=== PATIENT | female | born 1960 | race Caucasian/White ===

== ENCOUNTER 2017-09-01 13:58 | Observation (INO) | payer OTHER, SELFPAY ==
--- NOTE | 2017-09-01 14:23 | CT ---
CT HEAD WITHOUT IV CONTRAST: Date: 09-01-17 History: Left sided facial droop and weakness. Comparison: 03-25-17 FINDINGS: There is a remote lacunar infarction again seen in the right basal ganglia. There is no evidence of an acute cortical infarction, hemorrhage, mass effect, or midline shift. Ventricular system is emeka l in size, shape, and position. There has been no interval change from prior exam. IMPRESSION: 1. No acute intracranial abnormalities demonstrated. 2. Remote lacunar infarction right basal ganglia. 3. Above findings discussed with DELANO Dorado in the Emergency Department, 09-01-17 at 1419 hours. POS: [facility]
[2017-09-01 14:37] LABS: #Basophils 0.1 thou/uL (0.0-0.2); #Eosinphils 0.3 thou/uL (0.0-0.7); #Lymphocytes 1.7 thou/uL (1.20-3.40); #Monocytes 0.5 thou/uL (0.11-0.59); #Neutrophils 3.7 thou/uL (1.40-6.50); %Basophils 0.9 % (0.0-1.0); %Eosinophils 4.5 % (0.0-10.0); %Lymphocytes 27.8 % (21.0-51.0); %Monocytes 8.5 % (0.0-10.0); Hematocrit 41.5 % (36.0-47.0); Mean Platelet Volume 10.3 fL (7.4-10.4); White Blood Cell (WBC) Count 6.3 thou/uL (4.8-10.8)
[2017-09-01] MEDS ORDERED: Diazepam 10 MG/2 ML SYRINGE ONE (14:41)
[2017-09-01 14:47] LABS: ALT (SGPT) 9 U/L (8-55); AST (SGOT) 12 U/L (5-34); Alkaline Phosphatase 94 U/L (40-150); Anion Gap 16 mmol/L (10-20); BUN (Urea Nitrogen) 20 mg/dL (9.8-20.1); Bilirubin, Total 0.5 mg/dL (0.2-1.2); Calc. Creatinine Clearance 0 mL/min (70-130); Calcium 9.3 mg/dL (7.8-10.44); Carbon Dioxide 14 mmol/L (22-29); Chloride 109 mmol/L (98-107); Estimated GFR-MDRD 48; Globulin 3.1 g/dL (2.4-3.5); Protein, Total 7.1 g/dL (6.0-8.3)
[2017-09-01 14:51] LABS: Troponin I Less than 0.010 ng/mL (< 0.028)
[2017-09-01 15:13] LABS: Prothrombin Time 12.4 SEC (12.0-14.7)
[2017-09-01 15:14] LABS: PTT 65.8 SEC (22.9-36.1)
[2017-09-01] MEDS ORDERED: Acetaminophen 500 MG TAB ONE (15:56)
--- NOTE | 2017-09-01 16:17 | CT ---
CT ANGIOGRAM OF THE [place] CT ANGIOGRAM OF THE NECK: CT PERFUSION: Date: 09/01/17 HISTORY: Stroke activation. History of CVA. Left facial droop. Symptoms are now better with generalized weakn ess. COMPARISON: None. TECHNIQUE: CT angiogram of the head and neck are performed in the axial plane. Sagittal and coronal three-dimen sional reformatted images are submitted for interpretation. FINDINGS: Cortical clarke-white matter differentiation appears to be preserved. Adequate aeration of the sinuses and mastoid air cells. Bilateral ocular lens implants are noted. Both globes are intact. Retrobulbar fat is preserved. Symm etric attenuation of the optic nerves and ocular rectus muscles. Symmetric attenuation of the parotid and submandibular glands. Thyroid gland is unremarkable. Symmetric attenuation of the sternocleidomastoid muscles. No evidence of lymphadenopathy by size criteria. Narrowing of the airway at the level of the false a nd true vocal cords is presumed to be due to patient formation. If there is concern for pathology, n onemergent direct visualization is recommended. Upper mediastinum is unremarkable. Ground-glass opacities in the lung apices are nonspecific. Cervical spine vertebral body height is maintained. There is no fracture. There are varying degrees of central canal stenosis and foraminal narrowing on the basis of degenerative change. CT ANGIOGRAM: There is appropriate enhancement and luminal diameter of the aortic arch. Right Carotid: Right carotid artery origin has appropriate enhancement and luminal diameter. The innominate artery, common carotid artery, carotid bifurcation, and internal carotid artery have appropriate enhancemen t and luminal diameter. Left Carotid: Left carotid artery origin has appropriate enhancement and luminal diameter. Left common carotid art raymundo, carotid bifurcation, and internal carotid artery have appropriate enhancement and luminal diame ter. Bilateral subclavian arteries are patent. Origin of both vertebral arteries are unremarkable. Both cervical vertebral arteries are patent thro ughout their course in the neck. Vertebral arteries are essentially codominant. CT ANGIOGRAM OF HEAD: There is symmetric enhancement and luminal diameter of distal cervical and intracranial internal car otid arteries. There is mild atherosclerotic disease in both cavernous segments. Anterior Circulation: There is symmetric enhancement and luminal diameter of the A1 and M1 segments. There is symmetric en hancement and luminal diameter of the A2 segments and proximal MCA branches. Posterior Circulation: Left and right PICA artery origins are unremarkable. Both vertebral arteries supply a normal caliber basilar artery. There is appropriate enhancement and luminal diameter. The left and right P1 segmen ts have symmetric enhancement and luminal diameter. CT PERFUSION: Suboptimal examination due to patient motion. The CT perfusion study is essentially nondiagnostic. IMPRESSION: 1. No significant stenosis in either carotid artery based upon NASCET criteria. 2. No significant stenosis at the level of the [place]. 3. Nondiagnostic CT perfusion scan due to patient motion. Results of study discussed with Dr. Chavez on 09/01/17 at 1537 hours. CODE CR. POS: [facility]
[2017-09-01] MEDS ORDERED: ISOVUE-370 76%-LOCM 1 ML ONE (16:25)
[2017-09-01 22:18] LABS: Bilirubin Negative (Negative); Blood, Urine Negative (Negative); Glucose, Urine (Dipstick) Negative (Negative); Ketone, Urine Negative (Negative); Nitrite Negative (Negative); Protein, Urine (Dipstick) Negative (Neg-Trace); Urobilinogen 0.2 mg/dL (0.2-1.0)
[2017-09-01] MEDS ORDERED: Ondansetron HCl/PF 4 MG/2 ML Vial IVP PRN (22:25)
[2017-09-01] MEDS ORDERED: Ondansetron ODT 4 MG TAB SL PRN (22:25)
[2017-09-01] MEDS ORDERED: Sodium Chloride 0.9% 1,000 ML IV SCH (22:30)
[2017-09-01 23:15] VITALS: BMI 28.5
[2017-09-02] MEDS ORDERED: Dextrose 50% Abboject 50 ML SYRINGE SLOW IVP PRN (01:16)
[2017-09-02] MEDS ORDERED: hydrALAZINE 20 MG/ML VIAL SLOW IVP PRN (01:16)
[2017-09-02] MEDS ORDERED: HumaLOG 300 UNITS/3 ML VIAL SC PRN (01:16)
[2017-09-02] MEDS ORDERED: Dextrose 5% in Water 1,000 ML IV PRN (01:16)
[2017-09-02] MEDS: Acetaminophen 325 MG TAB PO PRN ×2 (01:20→12:08)
[2017-09-02] MEDS: Sodium Chloride 0.9% 1,000 ML IV SCH ×2 (02:57→18:15)
[2017-09-02 05:13] LABS: Amphetamine Not Detected (NotDetected); Methamphetamine Not Detected (NotDetected)
[2017-09-02 05:14] LABS: Methadone Not Detected (NotDetected)
[2017-09-02 06:00] LABS: #Basophils 0.1 thou/uL (0.0-0.2); #Eosinphils 0.3 thou/uL (0.0-0.7); #Monocytes 0.5 thou/uL (0.11-0.59); #Neutrophils 2.9 thou/uL (1.40-6.50); %Basophils 0.9 % (0.0-1.0); %Eosinophils 4.5 % (0.0-10.0); %Lymphocytes 35.3 % (21.0-51.0); %Monocytes 8.9 % (0.0-10.0); Mean Platelet Volume 10.6 fL (7.4-10.4); Red Blood Cell (RBC) Count 4.15 mill/uL (4.20-5.40); White Blood Cell (WBC) Count 5.8 thou/uL (4.8-10.8)
[2017-09-02 06:28] LABS: Anion Gap 15 mmol/L (10-20); BUN (Urea Nitrogen) 17 mg/dL (9.8-20.1); Calc. Creatinine Clearance 77 mL/min (70-130); Calcium 9.1 mg/dL (7.8-10.44); Carbon Dioxide 15 mmol/L (22-29); Chloride 109 mmol/L (98-107); Cholesterol 136 mg/dl (< 200 Desired); Estimated GFR-MDRD 58; LDL Cholesterol, Calculated 62 mg/dL
--- NOTE | 2017-09-02 07:24 | HP ---
CHIEF COMPLAINT: Left-sided weakness with facial weakness and extremity weakness. HISTORY OF PRESENT ILLNESS: This is a 57-year-old pleasant lady who was apparently in her usual sta te of health, was sitting up in the morning when she started having a sudden onset of left-sided wea kness of the face, angle of mouth, and left-sided arm weakness and left leg weakness. She came into the hospital as she was concerned. It is associated with some dizziness, no shortness of breath, n o chest pain, no cough, no fever, no chills, no diarrhea or dysuria. PAST MEDICAL HISTORY: Significant for episodes of TIA in the past, history of polysubstance abuse w ith tobacco, marijuana, and crack, diabetes on oral hypoglycemics, hypertension, history of urinary retention suspected secondary to Seroquel, history of anxiety, depression, hyperlipidemia, history o f TIAs, chronic hyponatremia, history of pseudoseizures, gout, chronic kidney disease stage II, account analyst neil migraine. PAST SURGICAL HISTORY: Significant for hysterectomy, back surgery, bilateral cataract removal, unil ateral oophorectomy. ALLERGIES: MORPHINE, AMITRIPTYLINE, and MUSHROOMS. FAMILY HISTORY: Significant for diabetes in multiple family members. SOCIAL HISTORY: Denies any tobacco use, marijuana use, crack use, or alcohol use right now, though all these have been used in the past. CURRENT MEDICATIONS: Please see MAR. REVIEW OF SYSTEMS: Significant for no fever, no chills, no headache, no appetite, no hearing loss, no latencies. No cough, no chest pain, diarrhea, dysuria, or polyuria. No memory or mood changes. 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 No neck pain. PHYSICAL EXAMINATION: VITAL SIGNS: Blood pressure is 147/93, afebrile, pulse is 77, respirations 18, satting 100% on 2 li ters. GENERAL: The patient is lying in bed, no apparent respiratory distress. HEENT: Atraumatic and normocephalic. Pupils equally round, react to light. Extraocular movements are intact. Mucous membranes are moist. NECK: Supple. No JVD. CHEST: Breath sounds heard. No rales or rhonchi. HEART: S1, S2. No murmurs or gallops. ABDOMEN: Soft. EXTREMITIES: No cyanosis, clubbing, edema. Distal pulses present. NEUROLOGIC: Alert, awake, oriented. There is weakness of the left side of the angle of the face, c an raise eyebrows, puff cheeks, stick out tongue, move it side to side, shrug shoulders. Left side strength is 4/5 in the upper extremity and the lower extremity. Right side is 5/5. SKIN: Warm and dry. LABORATORY DATA AND IMAGING: CT head showed nothing acute, remote lacunar infarct in the right basa l ganglia. WBC count is 6.3, hemoglobin is 14. INR is 0.9. Potassium is 4, creatinine is 1.1. UA is negative. CTA done shows no significant stenosis of the carotid circulation on the [place]. ASSESSMENT AND PLAN: 1. Possible transient ischemic attack/cerebrovascular accident with left-sided facial weakness and left-sided hemiparesis. We will continue aspirin. Do lipid panel, increase the dose of Lipitor. A Neurology consult, MRI, PT, OT, and Speech eval. 2. Diabetes mellitus. Put her on insulin sliding scale. 3. Hyperlipidemia, stable. 4. Hypertension. I will continue home medications and p.r.n. medications. 5. History of transient ischemic attack in the past. 6. History of crack, PHS, marijuana, and tobacco use in the past 7. Chronic kidney disease stage II. 8. History of depression. 9. Sequential compression devices for deep venous thrombosis prophylaxis. I will work with the moshe lopez and further caring for the patient.
[2017-09-02] MEDS: metFORMIN 500 MG TAB PO SCH ×2 (09:15→17:09)
[2017-09-02] MEDS: Lisinopril 10 MG TAB PO SCH (09:16)
[2017-09-02] MEDS: Metoprolol Tartrate 25 MG TAB PO SCH ×2 (09:16→20:14)
[2017-09-02] MEDS: Topiramate 25 MG TAB PO SCH ×2 (09:17→20:14)
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
[2017-09-02] MEDS ORDERED: Ketorolac Tromethamine 30 MG/ML VIAL IVP SCH (16:30)
--- NOTE | 2017-09-02 18:47 | CT ---
HEAD CT NONCONTRAST 09/02/17 INDICATION: Acute headache, recent stroke. FINDINGS: There is no ventriculomegaly, mass effect, midline shift or acute intracranial hemorrhage. No signif icant interval change. IMPRESSION: No acute intracranial abnormalities. POS: [facility]
--- NOTE | 2017-09-02 19:01 | MRI ---
MRI OF BRAIN NONCONTRAST 09/02/17 INDICATION: Left facial droop, stroke. FINDINGS: No acute territorial infarction. Ventricular system is normal in size. No midline shift. There is mi nimal chronic microvascular ischemic disease. No intracranial hemorrhagic susceptibility. Central sk ull base flow voids are patent. IMPRESSION: 1. No acute territorial infarction. 2. Minimal chronic microvascular ischemic disease, stable. POS: [facility]
[2017-09-02] MEDS ORDERED: QUEtiapine Fumarate ER 150 MG TAB PO SCH (21:00)
[2017-09-02] MEDS ORDERED: Atorvastatin Calcium 20 MG TAB PO SCH (21:00)
--- NOTE | 2017-09-02 22:18 | CON ---
DATE OF CONSULTATION: 09/02/2017 CONSULTING PHYSICIAN: Hospitalist Service. HISTORY OF PRESENT ILLNESS: Ms. Montgomery is a 57-year-old white female with a known history of diabete s and prior lacunar infarction as well as hypertension. She reportedly has a past history of crack use, but denies any use in the last 5 years. She does continue to smoke. She came in with complain ts of left-sided weakness. She reportedly is also having seizures according to her description, alt asmita no one has witnessed these. Her workup thus far include a CT of the brain, which showed an ol d right basal ganglia infarct. CTA was clear of any stenosis. MRI is pending. Her exam shows embellishment of left-sided weakness without any definitive clear objective abnormali ty. I suspect that she is embellishing her exam and there is not likely going to be anything found on MR Is as far as an acute ischemic event. Continue her on aspirin and statin for stroke prevention base d on her old findings. Be hesitant to start her on any type of anticonvulsant. She can follow up w magdalene Pandya, who was previously seen her.
[2017-09-02] MEDS ORDERED: Melatonin 3 MG TAB PO PRN (22:28)
[2017-09-03 05:09] LABS: #Basophils 0.1 thou/uL (0.0-0.2); #Eosinphils 0.3 thou/uL (0.0-0.7); #Lymphocytes 2.6 thou/uL (1.20-3.40); #Monocytes 0.7 thou/uL (0.11-0.59); #Neutrophils 2.1 thou/uL (1.40-6.50); %Basophils 1.4 % (0.0-1.0); %Eosinophils 5.8 % (0.0-10.0); %Lymphocytes 44.6 % (21.0-51.0); %Monocytes 11.3 % (0.0-10.0); Hematocrit 36.7 % (36.0-47.0); Mean Platelet Volume 10.6 fL (7.4-10.4); Red Blood Cell (RBC) Count 3.75 mill/uL (4.20-5.40); White Blood Cell (WBC) Count 5.8 thou/uL (4.8-10.8)
[2017-09-03 05:30] LABS: Anion Gap 13 mmol/L (10-20); BUN (Urea Nitrogen) 23 mg/dL (9.8-20.1); Calc. Creatinine Clearance 67 mL/min (70-130); Calcium 8.7 mg/dL (7.8-10.44); Carbon Dioxide 14 mmol/L (22-29); Chloride 112 mmol/L (98-107); Estimated GFR-MDRD 48
[2017-09-03] MEDS: metFORMIN 500 MG TAB PO SCH (08:46)
[2017-09-03] MEDS: Lisinopril 10 MG TAB PO SCH (08:46)
[2017-09-03] MEDS: Metoprolol Tartrate 25 MG TAB PO SCH (08:46)
[2017-09-03] MEDS: Topiramate 25 MG TAB PO SCH (08:47)
[2017-09-03 11:53] VITALS: BP 123/77; TEMP 98.8
--- NOTE | 2017-09-03 15:03 | DIS ---
PRIMARY CARE PHYSICIAN: Not listed. PRIMARY NEUROLOGIST: Dr. Catalina Pandya. DATE OF ADMISSION: 09/01/2017 DATE OF DISCHARGE: 09/03/2017 DISCHARGE DIAGNOSES: 1. History of pseudoseizures. 2. Migraine headaches, chronic. 3. Polysubstance abuse including opioids and THC. This time, it was positive for THC, benzos and T Mar[place]. 4. Moderate protein-calorie malnutrition. 5. Obesity. 6. Unspecified convulsions, unlikely to be seizures. 7. History of cerebrovascular disease with cerebrovascular accident in the past, but no acute cereb rovascular accident. CONSULTATIONS: Dr. Murray with Neurology. PROCEDURES: 1. She had a brain CT on admission that was negative for acute abnormality. 2. CT angiography on 09/01/2017 revealed no diffusion abnormalities. 3. A repeat brain CT 09/02/2017 negative for acute intracranial abnormality. 4. Brain MRI 09/02/2017 with no evidence of acute territorial infarction and minimal chronic microv ascular ischemic changes that are stable. 5. Echocardiogram that shows ejection fraction 60% to 65% with a grade 1/3 diastolic dysfunction, m ild mitral regurgitation, tricuspid regurgitation, and mildly elevated pulmonary artery pressure of 45 mmHg. HISTORY AND PHYSICAL: Ms. Montgomery is a 57-year-old female with multiple admissions for seizures, pseu doseizures, strokes and TIAs who was in the Emergency Department with left-sided weakness to her bod y and facial weakness. She came to the hospital for evaluation when this began that morning. She h as some dizziness. No shortness of breath, no chest pain. She states she has been having several episodes of seizures or spells where she was basically unresp onsive. She had no bowel or bladder incontinence and no tongue biting. We are called for admission . HOSPITAL COURSE: The patient was seen and examined and placed in a full admission status by Dr. Gia parish. She was continued on aspirin. Lipid panel was ordered and Lipitor was increased. Urolo gy was consulted. MRI was ordered. PT, OT and speech eval were requested. Overnight 09/01-09/02, the patient remained stable. She had several episodes of \\\\"seizure activity .\\\\" She was continued on her regular medications. I saw her in the morning on 09/02, she was feel ing better, but still complaining of weakness to her left face and body. MRI came back negative for acute ischemia, echocardiogram was unremarkable, and that afternoon she had 10/10, worse headache o f her life. A repeat CT scan was performed and was negative for intracranial hemorrhage. She was a gain watched overnight while waiting for neurology evaluation. Neurology did see her in the afternoon of 09/02, she had history of pseudoseizures and no evidence o f any new problems; therefore, they recommended no further workup and no change in medications and f ollow up with her regular neurologist. Overnight, the patient did well and today was feeling much better and was stable for discharge. PHYSICAL EXAMINATION: The patient was seen and examined on the day of discharge. Discharge plan an d disposition was discussed with the patient [id number] at the bedside. DISCHARGE MEDICATIONS: 1. Aspirin 324 mg daily. 2. Lipitor 20 mg p.o. at bedtime, increased from 10 mg at bedtime. Prescription sent for 30 tablet s with 2 refills. 3. Lisinopril/HCTZ 20/12.5 one p.o. daily. 4. Metoprolol tartrate 25 mg p.o. b.i.d. 5. Remeron 50 mg p.o. at bedtime. 6. Quetiapine ER 150 mg p.o. q.p.m. 7. Topamax 25 mg p.o. b.i.d. 8. Metformin 500 mg p.o. b.i.d. FOLLOWUP APPOINTMENTS: 1. Primary care physician within a week. 2. Follow up with Dr. Pandya in 1-2 weeks per his clinic schedule. DISCHARGE CONDITION: Stable. DISCHARGE DISPOSITION: Being discharged home via private vehicle. DISCHARGE INSTRUCTIONS: To return to the Emergency Department if she has any further problems. DISCHARGE ACTIVITY: As tolerated. DISCHARGE DIET: Heart healthy.
== END 2017-09-03 12:56 | disposition home or self-care (01) ==
LOC: ERS 13:58 → 2SE 22:21
PROVIDERS: ADMIT Internal Medicine; ATTEND Internal Medicine
DX: I63.9 Cerebral infarction, unspecified (principal); G43.909 Migraine, unspecified, not intractable, without status migrainosus; E44.0 Moderate protein-calorie malnutrition; E66.9 Obesity, unspecified; Z86.73 Personal history of transient ischemic attack (TIA), and cerebral infarction without residual deficits; R53.1 Weakness; R29.810 Facial weakness; R33.9 Retention of urine, unspecified; F41.9 Anxiety disorder, unspecified; F32.9 Major depressive disorder, single episode, unspecified; E78.5 Hyperlipidemia, unspecified; E87.1 Hypo-osmolality and hyponatremia; M10.9 Gout, unspecified; E11.22 Type 2 diabetes mellitus with diabetic chronic kidney disease; I12.9 Hypertensive chronic kidney disease with stage 1 through stage 4 chronic kidney disease, or unspecified chronic kidney disease; N18.2 Chronic kidney disease, stage 2 (mild); F19.20 Other psychoactive substance dependence, uncomplicated; F17.200 Nicotine dependence, unspecified, uncomplicated; R56.9 Unspecified convulsions; Z68.30 Body mass index [BMI] 30.0-30.9, adult; Z79.82 Long term (current) use of aspirin; Z79.84 Long term (current) use of oral hypoglycemic drugs; Z79.899 Other long term (current) drug therapy; Z88.5 Allergy status to narcotic agent; Z88.8 Allergy status to other drugs, medicaments and biological substances; Z91.018 Allergy to other foods; Z98.42 Cataract extraction status, left eye; Z98.41 Cataract extraction status, right eye; Z90.710 Acquired absence of both cervix and uterus; Z90.721 Acquired absence of ovaries, unilateral; Z98.890 Other specified postprocedural states
CPT/HCPCS: 0042T; 36415; 36416; 70450; 70496; 70498; 70551; 80048; 80053; 80061; 80306; 81003; 82553; 84146; 84484; 85025; 85610; 85730; 93005; 93306; 96361; 96374; 96375; G0378; G8987-GO-CJ; G8988-GO-CI; G8996-GN-CI; G8997-GN-CH; J1885; J3360

== ENCOUNTER 2017-11-14 14:06 | Inpatient (IN) | payer OTHER ==
[2017-11-14 14:50] LABS: #Basophils 0.1 thou/uL (0.0-0.2); #Lymphocytes 0.5 thou/uL (1.20-3.40); #Neutrophils 7.9 thou/uL (1.40-6.50); %Basophils 1.6 % (0.0-1.0); %Eosinophils 0.1 % (0.0-10.0); %Lymphocytes 5.7 % (21.0-51.0); %Monocytes 10.5 % (0.0-10.0); %Neutrophils 82.2 % (42.0-75.0); Hemoglobin 12.2 g/dL (12.0-16.0); Mean Corpuscular HGB CONC 32.7 g/dL (32.0-36.0); Mean Corpuscular Hemoglobin 31.4 pg (27.0-31.0); Mean Corpuscular Volume 96.1 fl (81.0-99.0); Mean Platelet Volume 10.1 fL (7.4-10.4); Platelet Count 191 thou/uL (130-400); RBC Distribution Width 11.6 % (11.5-14.5); Red Blood Cell (RBC) Count 3.88 mill/uL (4.20-5.40); White Blood Cell (WBC) Count 9.6 thou/uL (4.8-10.8)
[2017-11-14 14:57] LABS: INR-International Normal Ratio 1.2; PTT 52.4 SEC (22.9-36.1); Prothrombin Time 14.9 SEC (12.0-14.7)
[2017-11-14 15:03] LABS: ALT (SGPT) 8 U/L (8-55); AST (SGOT) 8 U/L (5-34); Albumin 3.4 g/dL (3.5-5.0); Alkaline Phosphatase 76 U/L (40-150); Anion Gap 20 mmol/L (10-20); BUN (Urea Nitrogen) 27 mg/dL (9.8-20.1); Bilirubin, Total 0.4 mg/dL (0.2-1.2); CK (CPK) 86 U/L (29-168); Calc. Creatinine Clearance 0 mL/min (70-130); Calcium 8.9 mg/dL (7.8-10.44); Carbon Dioxide 17 mmol/L (22-29); Chloride 97 mmol/L (98-107); Estimated GFR-MDRD 33; Globulin 3.2 g/dL (2.4-3.5); Glucose 307 mg/dL (70-105); Potassium 3.4 mmol/L (3.5-5.1); Protein, Total 6.6 g/dL (6.0-8.3); Sodium 131 mmol/L (136-145)
[2017-11-14 15:06] LABS: CKMB 0.8 ng/mL (0-6.6)
[2017-11-14] MEDS ORDERED: Ondansetron HCl/PF 4 MG/2 ML Vial ONE ×2 (15:15→15:17)
--- NOTE | 2017-11-14 15:29 | CT ---
CT BRAIN WITHOUT CONTRAST: Comparison: 09-02-17 History: Stroke alert. Left sided weakness. Possible seizure. Technique: Multiple contiguous axial images were obtained in a CT of the brain without contrast. FINDINGS: The brain is normal in morphology and attenuation without focal lesions or confluent areas of infarct ion. There is no evidence of hydrocephalus, intracranial hemorrhage, or extraaxial fluid collection. The calvarium and overlying soft tissues are unremarkable. The visualized paranasal sinuses and masto id air cells are well aerated. IMPRESSION: No evidence of acute intracranial abnormality. Dr. Lilly notified of the findings at 2:22 p.m. on . POS: [facility]
--- NOTE | 2017-11-14 15:31 | RAD ---
SINGLE VIEW OF THE CHEST: Comparison: 11-08-16 History: Stroke with left sided weakness. FINDINGS: Single view of the chest shows a normal sized cardiomediastinal silhouette. There is no evidence of c onsolidation, mass, or pleural effusion. The bones are unremarkable. IMPRESSION: No evidence of acute cardiopulmonary disease. POS: [facility]
--- NOTE | 2017-11-14 15:40 | CT ---
CTA OF THE NECK WITH CONTRAST CTA OF THE HEAD WITH CONTRAST CT PERFUSION OF THE BRAIN: History: Stroke with left sided weakness. Technique: 1. Multiple contiguous axial images were obtained in a CTA of the neck with contrast. 3D sagittal and coronal MIP reformats were performed. 2. Multiple contiguous axial images were obtained in a CTA of the head with contrast. 3D sagittal and coronal MIP reformats were performed. 3. A CT perfusion was performed. FINDINGS: CTA NECK: The common carotid arteries have a normal origin from the aortic arch. No significant atherosclerotic disease is seen within either common carotid artery. No significant disease is seen within the subcl [place]ernando artery. The common carotid artery bifurcates into normal caliber internal and external carotid arteries. No s ignificant atherosclerotic plaque is seen in either internal carotid artery per NASCET criteria. Both vertebral arteries are patent without significant irregularity to suggest atherosclerotic disease. CTA HEAD: Both intracranial internal carotid arteries are normal in caliber. There is atherosclerotic disease i n the cavernous portion of the carotid arteries without significant narrowing. The bilateral anterior and middle cerebral arteries are patent. There is no evidence of aneurysmal dilatation, focal stenos is, or occlusion in the anterior circulation. Both vertebral arteries form a normal appearing basilar artery. The posterior cerebral arteries and c erebellar arteries are patent. There is no evidence of aneurysmal dilatation, focal stenosis, or occl usion in the posterior circulation. CT PERFUSION: Blood volume, blood flow, and mean transit time are symmetric bilaterally without significant asymmet ry. IMPRESSION: 1. No evidence of significant stenosis of the internal carotid arteries in the neck per NASCET criter ia. 2. No significant intracranial vascular abnormality. 3. Normal CT perfusion. Dr. Lilly notified of the findings at 2:34 p.m. on 11-14-17. POS: [facility]
[2017-11-14] MEDS ORDERED: Lorazepam 2 MG/ML VIAL ONE (15:45)
[2017-11-14 16:12] LABS: Bilirubin Negative (Negative); Blood, Urine Small (Negative); Clarity CLEAR (Clear); Glucose, Urine (Dipstick) 500 mg/dL (Negative); Leukocyte Negative (Negative); Nitrite Negative (Negative); Protein, Urine (Dipstick) 30 mg/dL (Neg-Trace)
[2017-11-14 16:13] LABS: Bacteria/HPF None Seen HPF (None Seen); Hyaline Casts/LPF 0-3 HYALINE CAST LPF (0-3 Hyaline); Pathc Cast-AUWi Flag 0.13 (0-2.49); RBC/HPF 0-3 HPF (0-3); Squamous Epithelial 0-3 HPF (0-3)
[2017-11-14 16:15] LABS: Specific Gravity, Urine 1.047 (1.002-1.036)
[2017-11-14] MEDS ORDERED: levETIRAcetam In NaCl (Iso-Os) 1,500 MG in Premix Bag 1 BAG IVPB SCH (16:15)
[2017-11-14] MEDS ORDERED: ISOVUE-370 76%-LOCM 1 ML ONE (17:01)
[2017-11-14] MEDS ORDERED: Acetaminophen 650 MG Suppository PR PRN (17:20)
[2017-11-14] MEDS ORDERED: Dextrose 50% Abboject 50 ML SYRINGE SLOW IVP PRN (17:36)
[2017-11-14] MEDS ORDERED: Dextrose 5% in Water 1,000 ML IV PRN (17:36)
[2017-11-14 19:55] VITALS: BMI 25.3
--- NOTE | 2017-11-14 20:35 | CON ---
DATE OF CONSULTATION: 11/14/2017 CHIEF COMPLAINT: Seizure versus stroke. HISTORY OF PRESENT ILLNESS: Patient's sister was in the room, patient was unable to give me any medical information because she was sleepy following administration of nausea medication according to the sister and patient did receive Ativan 2 mg and that could be contributing to her sedation. Patient has not been eating well for the last 4 days according to her sister and started to have nausea and vomiting for 4 days and she became somewhat sick and confused and somnolent earlier and therefore EMS was called and on the way to the emergency room, patient had a seizure and was found to have left-sided weakness and she had a CT head and also received a CT angio which did not show any acute stroke and perfusion images are as noted and she has no evidence of significant stenosis of ICA and no significant intracranial vascular abnormality and perfusion was normal and on the brain CT, she had no evidence of acute intracranial abnormality. This lady was admitted and discharged in 2016 at which time she presented to the left-sided weakness and history of seizures without any weakness and workup at that time was negative and there was no concern for acute ischemic event and she was discharged home. Patient at baseline either drags her left leg or walks with slowness and difficulty on her left leg, according to her sister and patient also has been unable to use her left arm for several days now. PAST MEDICAL HISTORY: Patient has history of seizure, CVA, and prior history of cannabinoid hyperemesis syndrome, known diabetes, gastroparesis due to diabetes, polysubstance dependence, hypertension, migraine, history of dyslipidemia, anxiety and depression, and orthostatic hypotension in the past. FAMILY HISTORY: Positive for stroke in her father. SOCIAL HISTORY: Patient lives with her mother and sister and has family support. ALLERGIES: She is allergic to MORPHINE, AMITRIPTYLINE and MUSHROOMS. HOME MEDICATIONS: Lisinopril 20 mg once daily, prazosin 2 mg per day, metformin 500 mg b.i.d., Tradjenta 5 mg per day, Topamax 25 mg b.i.d., metoprolol 25 mg b.i.d., aspirin 81 mg per day, mirtazapine 15 mg per day, quetiapine 300 mg per day. CURRENT WORKUP/LABORATORY RESULTS: White count 9.6, hemoglobin 12.2, hematocrit 37.3, platelets 191. Chemistry: Sodium 131, potassium 3.4, chloride 97, carbon dioxide 17, BUN 27, creatinine 1.62, glucose 305. Lactic acid 1.1. Serum prolactin level is pending and a CT of the head today showed no evidence of acute intracranial abnormality and CT angiogram showed no evidence of significant stenosis of the internal carotid arteries in the neck. No significant intracranial vascular abnormality and normal CT perfusion. Her prior brain MRI from August also did not show any acute territorial infarction , minimal chronic microvascular ischemic disease. I do not see any EEG in her report. REVIEW OF SYSTEMS: Unobtainable. PHYSICAL EXAMINATION: VITAL SIGNS: Blood pressure 149/82, pulse 68, temperature 98.8. GENERAL APPEARANCE: This patient is asleep and difficult to arouse, likely secondary to sedation. CHEST: Clear vesicular breathing. CARDIOVASCULAR: S1, S2 heard. Carotids difficult colonoscopy because patient is breathing. ABDOMEN: Soft, no organomegaly detected. NEUROLOGICAL: The patient is sedated and withdraws to pain on the right side and also left lower extremity, although movement in the left lower extremity is diminished. No movement in the left upper extremity and patient has cranial nerve examination, pupils are reactive to light and fundus exam is normal. No facial asymmetry detected. The patient does not open her mouth. Cerebellar and sensory: Unable to perform and deep tendon reflexes were absent. IMPRESSION: Patient is a 57-year-old lady worsening of weakness of her left side and onset of seizure. She has prior history of similar events and also having had negative imaging studies. She is diabetic and presents with 4-day history of vomiting, poor appetite and also not feeling well and en route to the hospital, she apparently had a witnessed seizure. Sister was at work and she reports that she never saw her have a seizure. Her laboratory studies so far are unremarkable. On CT angio, she has normal perfusion, and there was no evidence of acute stroke or vascular occlusion. Due to presence of seizure and also variable clinical presentation, patient was considered not to be a tPA candidate. No IV tPA was administered. At the time of my evaluation she was sedated and a reliable neurological assessment could not be obtained. Diagnosis is most consistent with worsening of pre-existing stroke and seizure in the setting of metabolic abnormalities. RECOMMENDATIONS: I will request an MRI of the brain and we need to the re-examine this patient when she is more awake. I will request our neurologist site damage prevention technician tomorrow to follow up with this patient. Agree with Keppra for seizure activity. Please call if you have any other questions. ELVIRA
[2017-11-14] MEDS: Sodium Chloride 0.9% 1,000 ML IV SCH (21:25)
[2017-11-14] MEDS: Famotidine/PF 20 mg/2ml Vial SLOW IVP SCH (21:31)
[2017-11-14] MEDS: Heparin 5,000 UNITS/ML VIAL SC SCH (21:31)
[2017-11-14] MEDS: Atorvastatin Calcium 20 MG TAB PO SCH (21:34)
--- NOTE | 2017-11-14 22:03 | HP ---
CHIEF COMPLAINT: Left arm weakness, left leg weakness. HISTORY OF PRESENT ILLNESS: A 57-year-old female with a history of grand mal seizures who has also b een having a several day history of decreased p.o. intake. The patient has a known history of seizur es, diabetes, hypertension, prior hemorrhagic CVA. It appears that the patient recently was diagnosed with neurological deficit and CVA back in May a nd July of 2017 resulting left-sided weakness of the upper and lower extremities. Patient has bee n having generalized nausea with emesis over the last day and then subsequently had a grand mal seizu re that was witnessed by EMS. The patient has been given 1 mg of Ativan. The patient is currently nonverbal as she is postictal status post Ativan administration, the history as above was given to me by the patient's sister who is with her at bedside. REVIEW OF SYSTEMS: Unable to obtain secondary to the patient's mental status. However, per the patient's sister at bedside, the patient has been having some nausea with vomiting o margarito the last 3 days, but has been taking her home medications regardless. PAST MEDICAL HISTORY: As per HPI, includes the following prior history of hemorrhagic CVA x2 with re sulting left-sided weakness, TIA, hyperlipidemia, hypertension, type 2 diabetes, seizure disorder wit h grand mal seizures. HOME MEDICATIONS: The patient's sister denies any known changes to the patient's home medications in the last month. FAMILY HISTORY: The patient's sister is not aware of any known family history of recurrent CVAs or s eizures. SOCIAL HISTORY: The patient lives alone. Quit smoking approximately 10 years ago. Sister denies an y illicit drug use or alcohol use. The patient's sister is with her at bedside and self endorses as the patient's primary medical decision maker as the patient is currently unable to make her own medic al decisions. The patient's sister states that the patient has children who are out of town and that during prior hospitalizations that the sister, has been the primary medical decision maker for the p atient. Sister endorses that the patient will wish to be FULL CODE. PHYSICAL EXAMINATION: VITAL SIGNS: Blood pressure 165/98, heart rate of 85, respirations 19, satting 93% on room air. HEENT: Normocephalic, atraumatic. Dry mucous membranes. CARDIOVASCULAR: S1, S2. Pulses 2+ bilateral upper extremities, no pitting pedal edema. RESPIRATORY: Limited anterior examination, but otherwise marginal air movement. No wheezes, rales o r rhonchi. ABDOMEN: Positive bowel sounds, soft, nontender to palpation. NEUROLOGIC: The patient is grossly not following commands precisely and therefore unable to obtain a n accurate neurological examination at this point in time. This has been attributed to postictal sta te status post benzodiazepine administration as discussed in the HPI. LABORATORY DATA AND IMAGIN. WBC 9.6, hemoglobin 12.2, hematocrit 37.3, platelets 191. 2. PT 14.9, INR 1.2, APTT 52.4. 3. Sodium 131, potassium 3.4, chloride 97, bicarbonate 17, BUN 27, creatinine 1.62, glucose 307, lac tic acid 1.1, calcium 8.9, total bilirubin 0.4, AST 8, ALT 8, alkaline phosphatase 76. Creatine melany se 86, troponin 0.01. 4. UA significant for glucose of 500, ketones of 40 and small blood. ASSESSMENT AND PLAN: A 57-year-old female presenting with initial chief complaint of left-sided weak ness, also with breakthrough seizures. 1. Seizures. The patient has been administered Keppra and this has been given IV basis in the emerg ency department. I appreciate Neurology consultation. CTA perfusion has been negative. Ativan if n eeded for further active seizures. 2. Acute kidney injury, suspect a component of dehydration, IV fluids, close monitoring of intake an d output. 3. Hyperglycemia, likely reactive. Sliding scale insulin. Hold patient's home medications includin g her metformin in the setting of acute kidney injury. 4. Hypertension. Hold antihypertensives that may be potentially nephrotoxic. Close monitoring of t he patient's blood pressures. Labetalol versus nifedipine versus hydralazine if needed for blood pre ssure control. 5. Patient is admitted inpatient. FULL CODE. Thank you for asking me to participate in the care of the patient. Questions or concerns, please con tact me at [facility].
[2017-11-15 06:05] LABS: Anion Gap 16 mmol/L (10-20); BUN (Urea Nitrogen) 24 mg/dL (9.8-20.1); Calc. Creatinine Clearance 56 mL/min (70-130); Calcium 8.5 mg/dL (7.8-10.44); Carbon Dioxide 17 mmol/L (22-29); Chloride 104 mmol/L (98-107); Estimated GFR-MDRD 45; Glucose 130 mg/dL (70-105); Potassium 4.2 mmol/L (3.5-5.1); Sodium 133 mmol/L (136-145)
[2017-11-15 06:29] LABS: Hemoglobin 11.7 g/dL (12.0-16.0); Mean Corpuscular HGB CONC 32.1 g/dL (32.0-36.0); Mean Corpuscular Hemoglobin 30.8 pg (27.0-31.0); Mean Corpuscular Volume 95.8 fl (81.0-99.0); Platelet Count 168 thou/uL (130-400); RBC Distribution Width 11.7 % (11.5-14.5); Red Blood Cell (RBC) Count 3.79 mill/uL (4.20-5.40)
[2017-11-15 08:09] LABS: Band 10 % (5-11); Eosinophils 1 % (0-10); Lymphocytes 8 % (21-51); MDiff Complete? YES; Monocytes 12 % (0-10); Neutrophil 68 % (42-75); PLT Morphology Comment Appears Adequate; Reactive Lymphocytes 1 % (0-10)
--- NOTE | 2017-11-15 08:59 | PDOC.PN ---
- Subjective Encounter Start Date: 11/15/17 Encounter Start Time: 08:58 Subjective: nsg notes rev, papa ovn - pt was awake and conversant earlier apparently -: appears to be sleeping, will not rouse for me this AM but VSS and is -: protecting airway - Objective Resuscitation Status: Resuscitation Status FULL:Full Resuscitation Vital Signs & Weight: Vital Signs (12 hours) Temp Pulse Resp BP Pulse Ox 11/15/17 07:57 98.7 F 84 20 159/83 H 97 11/15/17 04:44 98.4 F 85 16 143/76 H 96 11/14/17 23:06 98.5 F 83 16 148/69 H 96 Weight Weight 156 lb 14.4 oz Result Diagrams: 11/15/17 05:01 11/15/17 05:01 Additional Labs: Accuchecks 11/15/17 11/14/17 05:51 20:32 POC Glucose 142 H 169 H Phys Exam - Physical Examination Constitutional: NAD Respiratory: no wheezing, no rales, no rhonchi, clear to auscultation bilateral Cardiovascular: RRR, no significant murmur, no rub Gastrointestinal: soft, no distention, positive bowel sounds Musculoskeletal: no edema, pulses present again patient non participatory with a neurological examination Dx/Plan (1) Acute CVA (cerebrovascular accident) Code(s): I63.9 - CEREBRAL INFARCTION, UNSPECIFIED Status: Acute (2) Hypertension Code(s): I10 - ESSENTIAL (PRIMARY) HYPERTENSION Status: Chronic Qualifiers: Hypertension type: essential hypertension Qualified Code(s): I10 - Essential (primary) hypertension (3) Left-sided weakness Code(s): M62.81 - MUSCLE WEAKNESS (GENERALIZED) Status: Chronic (4) Acute kidney failure Status: Resolved (5) Seizure Code(s): R56.9 - UNSPECIFIED CONVULSIONS Status: Resolved - Plan 1. Seizures. The patient has been administered Keppra and this has been given IV basis in the emergency department. I appreciate Neurology consultation. CTA perfusion has been negative. Ativan if needed for further active seizures. Review of prior records seem to suggest a prior hx of seizure vs pseudoseizures. Also question of new TIA vs CVA with a known hx of prior CVA with residual L sided weakness. Serial neurological examination. Follow up imaging 2. Acute kidney injury improving, suspect a component of dehydration, continue IV fluids, close monitoring of intake and output. 3. Hyperglycemia, likely reactive. Sliding scale insulin. Hold patient's home medications including her metformin in the setting of acute kidney injury. 4. Hypertension. Hold antihypertensives that may be potentially nephrotoxic. Close monitoring of the patient's blood pressures. Labetalol versus nifedipine versus hydralazine if needed for blood pressure control. diet: NPO activity: as orlin with PT, OT Review of Systems - Medications/Allergies Allergies/Adverse Reactions: Allergies Allergy/AdvReac Type Severity Reaction Status Date / Time morphine Allergy Verified 11/08/16 21:15 amitriptyline AdvReac Verified 11/08/16 21:15 mushrooms AdvReac Mild Severe Uncoded 02/06/16 19:58 Hives Medications: Current Medications Acetaminophen (Tylenol) 650 mg [place] Q4H PRN PRN Reason: Headache/Fever or Pain Aspirin (Aspirin Chewable) 324 mg PO DAILY [facility] Atorvastatin Calcium (Lipitor) 20 mg PO HS [facility] Last Admin: 11/14/17 21:34 Dose: 20 mg Dextrose/Water (Dextrose 50%) 25 gm SLOW IVP PRN PRN PRN Reason: Hypoglycemia Famotidine (Pepcid) 20 mg SLOW IVP QPM [facility] Last Admin: 11/14/17 21:31 Dose: 20 mg Glucagon (Glucagon) 1 mg IM PRN PRN PRN Reason: Hypoglycemia Heparin Sodium (Porcine) (Heparin) 5,000 units SC TID [facility] Last Admin: 11/14/17 21:31 Dose: 5,000 units Sodium Chloride (Normal Saline 0.9%) 1,000 mls @ 100 mls/hr IV .Q10H [facility] Last Admin: 11/14/17 21:25 Dose: 1,000 mls Dextrose/Water (D5w) 1,000 mls @ 0 mls/hr IV .Q0M PRN; As Directed PRN Reason: Hypoglycemia Insulin Human Lispro (Humalog) 0 units SC .MILD SLIDING SCALE PRN PRN Reason: Mild Correctional Scale
[2017-11-15] MEDS: Sodium Chloride 0.9% 1,000 ML IV SCH ×3 (09:49→23:30)
[2017-11-15] MEDS: Heparin 5,000 UNITS/ML VIAL SC SCH ×3 (09:50→21:22)
--- NOTE | 2017-11-15 11:11 | MRI ---
MRI BRAIN NONCONTRAST: DATE: 11/15/17. HISTORY: A 57-year-old female with acute left-sided weakness. FINDINGS: All of the images are degraded by patient motion. The ventricles are normal in size and configuratio n. There is no restricted diffusion, midline shift or any other mass effect, recent intraaxial hemor rhage, or extraaxial fluid collection. There are a few scattered punctate T2-hyperintensities in the cerebral white matter consistent with mild chronic ischemic white matter changes due to minimal-mild microvascular atherosclerosis. IMPRESSION: 1. Minimal-mild chronic ischemic white matter changes. 2. Otherwise negative. jnR POS: ROSA
[2017-11-15] MEDS: Atorvastatin Calcium 20 MG TAB PO SCH (21:21)
[2017-11-15] MEDS: Famotidine/PF 20 mg/2ml Vial SLOW IVP SCH (21:21)
[2017-11-16 08:25] LABS: Anion Gap 12 mmol/L (10-20); BUN (Urea Nitrogen) 17 mg/dL (9.8-20.1); Calc. Creatinine Clearance 70 mL/min (70-130); Calcium 8.6 mg/dL (7.8-10.44); Carbon Dioxide 17 mmol/L (22-29); Chloride 108 mmol/L (98-107); Estimated GFR-MDRD 58; Glucose 123 mg/dL (70-105); Potassium 3.1 mmol/L (3.5-5.1); Sodium 134 mmol/L (136-145)
[2017-11-16] MEDS: Heparin 5,000 UNITS/ML VIAL SC SCH ×4 (08:50→23:01)
--- NOTE | 2017-11-16 10:31 | PDOC.PN ---
- Subjective Encounter Start Date: 11/16/17 Encounter Start Time: 10:31 Subjective: nsg notes rev, papa ovn, pt is currently awake pleasant and conversant -: for the first time during this hospitalization. no new c/o other than -: overwhelming anxiety. throughout the day has been intermittently tearful - Objective Resuscitation Status: Resuscitation Status FULL:Full Resuscitation Vital Signs & Weight: Vital Signs (12 hours) Temp Pulse Resp BP Pulse Ox 11/16/17 08:50 98.5 F 77 18 97 11/16/17 07:09 98.5 F 77 18 142/103 H 97 11/16/17 03:29 99.1 F 75 16 145/81 H 97 11/15/17 23:15 99.1 F 81 16 138/76 95 Weight Weight 156 lb 14.4 oz I&O: 11/15/17 11/16/17 11/17/17 06:59 06:59 06:59 Intake Total 1700 Balance 1700 Result Diagrams: 11/15/17 05:01 11/16/17 07:57 Additional Labs: Accuchecks 11/16/17 11/16/17 11/15/17 05:29 00:44 17:13 POC Glucose 113 H 145 H 122 H 11/15/17 10:48 POC Glucose 178 H Phys Exam - Physical Examination HEENT: PERRLA, moist MMs Respiratory: no wheezing, no rales, no rhonchi, clear to auscultation bilateral Cardiovascular: RRR, no significant murmur, no rub Gastrointestinal: soft, non-tender, positive bowel sounds Musculoskeletal: no edema, pulses present Neurological: moves all 4 limbs Dx/Plan (1) Acute CVA (cerebrovascular accident) Code(s): I63.9 - CEREBRAL INFARCTION, UNSPECIFIED Status: Acute (2) Hypertension Code(s): I10 - ESSENTIAL (PRIMARY) HYPERTENSION Status: Chronic Qualifiers: Hypertension type: essential hypertension Qualified Code(s): I10 - Essential (primary) hypertension (3) Left-sided weakness Code(s): M62.81 - MUSCLE WEAKNESS (GENERALIZED) Status: Chronic - Plan Pt has a known hx of prior CVA with L sided weakness. On admission there was concern for recurrent CVA vs TIA complicated by a sz. No new CVA is evidenced. No further sz activity either. will continue with keppra orally; appreciate neurology consultation. patient has significant overlying psychiatric hx as well which does include hx of anxiety. As she is now sufficiently awake to safely tolerate PO, will resume her home psychiatric medications with supportive management otherwise. Prn ativan for anxiety. Nursing during the day reporting some bilious emesis with question of hemoptysis. Will recheck CBC and guaic check gastric contents if available. Hemodynamically stable. Symptomatic managment of nausea. Review of Systems - Medications/Allergies Allergies/Adverse Reactions: Allergies Allergy/AdvReac Type Severity Reaction Status Date / Time morphine Allergy Verified 11/08/16 21:15 amitriptyline AdvReac Verified 11/08/16 21:15 mushrooms AdvReac Mild Severe Uncoded 02/06/16 19:58 Hives Medications: Current Medications Acetaminophen (Tylenol) 650 mg [place] Q4H PRN PRN Reason: Headache/Fever or Pain Aspirin (Aspirin Chewable) 324 mg PO DAILY [facility] Last Admin: 11/16/17 08:50 Dose: 324 mg Atorvastatin Calcium (Lipitor) 20 mg PO HS [facility] Last Admin: 11/15/17 21:21 Dose: 20 mg Dextrose/Water (Dextrose 50%) 25 gm SLOW IVP PRN PRN PRN Reason: Hypoglycemia Heparin Sodium (Porcine) (Heparin) 5,000 units SC TID [facility] Last Admin: 11/16/17 08:50 Dose: 5,000 units Dextrose/Water (D5w) 1,000 mls @ 0 mls/hr IV .Q0M PRN; As Directed PRN Reason: Hypoglycemia Insulin Human Lispro (Humalog) 0 units SC .MILD SLIDING SCALE PRN PRN Reason: Mild Correctional Scale
[2017-11-16] MEDS: Sodium Chloride 0.9% 1,000 ML IV SCH (11:08)
[2017-11-16] MEDS: HumaLOG 300 UNITS/3 ML VIAL SC PRN (11:19)
[2017-11-16] MEDS ORDERED: Ondansetron ODT 4 MG TAB PO PRN (13:19)
[2017-11-16] MEDS: Ondansetron HCl/PF 4 MG/2 ML Vial IVP PRN ×2 (13:45→16:04)
[2017-11-16] MEDS ORDERED: ALPRAZolam 0.25 MG TAB PO SCH (15:30)
[2017-11-16] MEDS: Mirtazapine 15 MG TAB PO SCH (18:27)
[2017-11-16] MEDS ORDERED: Ondansetron ODT 4 MG TAB SL PRN (18:37)
[2017-11-16] MEDS ORDERED: Ondansetron HCl/PF 4 MG/2 ML Vial IVP PRN (18:37)
[2017-11-16] MEDS ORDERED: levETIRAcetam 500 MG TAB PO SCH ×2 (18:45→21:00)
[2017-11-16] MEDS ORDERED: Lorazepam 2 MG/ML VIAL SLOW IVP SCH (19:45)
[2017-11-16] MEDS: Promethazine HCl 25 MG/ML VIAL IM/IV PRN (20:40)
[2017-11-16] MEDS: Atorvastatin Calcium 20 MG TAB PO SCH (22:58)
--- NOTE | 2017-11-16 23:36 | EKG ---
Test Reason : CODE GREEN Blood Pressure : / mmHG Vent. Rate : 078 BPM Atrial Rate : 078 BPM P-R Int : 134 ms QRS Dur : 078 ms QT Int : 374 ms P-R-T Axes : 063 084 055 degrees QTc Int : 426 ms Normal sinus rhythm Nonspecific ST abnormality Abnormal ECG When compared with ECG of 14-NOV-2017 14:35, (Unconfirmed) No significant change was found Confirmed by Jared PRECIADO ([id number]) on 11/16/2017 11:35:38 PM Referred By: ZINA Confirmed By:Jared PRECIADO
[2017-11-17] MEDS: Mirtazapine 15 MG TAB PO SCH ×2 (07:31→20:07)
[2017-11-17] MEDS: Potassium Chloride 20 MEQ TAB PO SCH ×2 (09:09→16:41)
[2017-11-17] MEDS: levETIRAcetam 500 MG TAB PO SCH ×2 (09:09→20:06)
[2017-11-17] MEDS: Heparin 5,000 UNITS/ML VIAL SC SCH ×3 (09:11→20:06)
[2017-11-17 13:01] LABS: Hemoglobin 12.6 g/dL (12.0-16.0)
--- NOTE | 2017-11-17 13:54 | PDOC.PN ---
- Subjective Encounter Start Date: 11/17/17 Encounter Start Time: 14:00 Subjective: No new complaints. Patient reports doing better today but appetite poor. - Objective Resuscitation Status: Resuscitation Status FULL:Full Resuscitation MAR Reviewed: Yes Vital Signs & Weight: Vital Signs (12 hours) Temp Pulse Resp BP Pulse Ox 11/17/17 12:00 98.2 F 82 16 118/76 98 11/17/17 08:00 98.3 F 82 16 97/80 98 11/17/17 06:00 116/78 11/17/17 03:15 98.5 F 90 18 174/101 H 93 L Weight Admit Weight 156 lb 14.4 oz Weight 155 lb 3.2 oz I&O: 11/16/17 11/17/17 11/18/17 06:59 06:59 06:59 Intake Total 1700 30 Balance 1700 30 Result Diagrams: 11/17/17 12:33 11/16/17 07:57 Additional Labs: Accuchecks 11/17/17 11/17/17 11/17/17 10:48 06:20 00:31 POC Glucose 111 H 118 H 129 H 11/16/17 17:38 POC Glucose 166 H Phys Exam - Physical Examination Constitutional: NAD HEENT: PERRLA, moist MMs, sclera anicteric Neck: full ROM Respiratory: no wheezing, no rales, clear to auscultation bilateral Cardiovascular: RRR, no significant murmur, no rub Gastrointestinal: soft, non-tender, no distention, positive bowel sounds Musculoskeletal: no edema Neurological: non-focal strenght 31/2 over 5 in left extremities Psychiatric: A&O x 3 Skin: no rash Dx/Plan (1) Acute CVA (cerebrovascular accident) Code(s): I63.9 - CEREBRAL INFARCTION, UNSPECIFIED Status: Acute Plan: Has residual L hemiparesis. Continue ASA and Statin. PT/OT consulted. Moght require BEAR placement. (2) Anxiety and depression Code(s): F41.9 - ANXIETY DISORDER, UNSPECIFIED; F32.9 - MAJOR DEPRESSIVE DISORDER, SINGLE EPISODE, UNSPECIFIED Status: Chronic Plan: Resumed on Remeron and Quetiapine. [facility] consulted. (3) Seizure Code(s): R56.9 - UNSPECIFIED CONVULSIONS Status: Chronic Plan: Restarted on Keppra. Will monitor. (4) Hypokalemia Code(s): E87.6 - HYPOKALEMIA Status: Acute Plan: Replete. Check serum magnesium as well. (5) Diabetes type 2, controlled Code(s): E11.9 - TYPE 2 DIABETES MELLITUS WITHOUT COMPLICATIONS Status: Chronic Qualifiers: Diabetes mellitus complication status: with unspecified complications Diabetes mellitus fpc insulin use: without fpc use Qualified Code( s): E11.8 - Type 2 diabetes mellitus with unspecified complications Plan: Diet controlled. Continue current management. Comment: A1C 6.8, ISS - Plan cont current plan of care, PT/OT, social service technician, DVT proph w/heparin Obtain [facility] consult -: Monitor serum Potassium -: Possible discharge to [facility] depending on OT/OT eval * .
[2017-11-17 14:31] LABS: Anion Gap 15 mmol/L (10-20); BUN (Urea Nitrogen) 19 mg/dL (9.8-20.1); Calc. Creatinine Clearance 59 mL/min (70-130); Calcium 9.1 mg/dL (7.8-10.44); Carbon Dioxide 20 mmol/L (22-29); Chloride 104 mmol/L (98-107); Estimated GFR-MDRD 48; Glucose 126 mg/dL (70-105); Potassium 3.5 mmol/L (3.5-5.1); Sodium 135 mmol/L (136-145)
[2017-11-17] MEDS: Atorvastatin Calcium 20 MG TAB PO SCH (20:07)
[2017-11-18 05:55] LABS: #Eosinphils 0.3 thou/uL (0.0-0.7); #Lymphocytes 1.5 thou/uL (1.20-3.40); #Monocytes 0.8 thou/uL (0.11-0.59); %Basophils 0.3 % (0.0-1.0); %Eosinophils 3.8 % (0.0-10.0); %Lymphocytes 23.4 % (21.0-51.0); %Monocytes 11.8 % (0.0-10.0); %Neutrophils 60.6 % (42.0-75.0); Hemoglobin 12.5 g/dL (12.0-16.0); Mean Corpuscular Hemoglobin 32.1 pg (27.0-31.0); Mean Corpuscular Volume 94.3 fl (81.0-99.0); Mean Platelet Volume 9.7 fL (7.4-10.4); Platelet Count 225 thou/uL (130-400); RBC Distribution Width 11.8 % (11.5-14.5); Red Blood Cell (RBC) Count 3.89 mill/uL (4.20-5.40); White Blood Cell (WBC) Count 6.6 thou/uL (4.8-10.8)
[2017-11-18 06:05] LABS: Anion Gap 11 mmol/L (10-20); BUN (Urea Nitrogen) 21 mg/dL (9.8-20.1); Calc. Creatinine Clearance 62 mL/min (70-130); Carbon Dioxide 21 mmol/L (22-29); Chloride 108 mmol/L (98-107); Estimated GFR-MDRD 51; Glucose 122 mg/dL (70-105); Potassium 4.2 mmol/L (3.5-5.1); Sodium 136 mmol/L (136-145)
[2017-11-18] MEDS: Promethazine HCl 25 MG/ML VIAL IM/IV PRN (06:32)
[2017-11-18] MEDS: levETIRAcetam 500 MG TAB PO SCH (08:30)
[2017-11-18] MEDS: Heparin 5,000 UNITS/ML VIAL SC SCH ×2 (08:30→15:13)
[2017-11-18 11:52] VITALS: BP 156/102; TEMP 97.9
[2017-11-18] MEDS: HumaLOG 300 UNITS/3 ML VIAL SC PRN (11:54)
--- NOTE | 2017-11-18 15:05 | PDOC.PN ---
- Subjective Encounter Start Date: 11/18/17 Encounter Start Time: 15:01 Subjective: no new complaints. Reports doing well. - Objective Resuscitation Status: Resuscitation Status FULL:Full Resuscitation Vital Signs & Weight: Vital Signs (12 hours) Temp Pulse Resp BP Pulse Ox 11/18/17 11:51 97.9 F 80 18 156/102 H 97 11/18/17 08:00 98.5 F 91 16 144/88 H 98 11/18/17 03:11 98.0 F 81 16 111/77 96 Weight Admit Weight 156 lb 14.4 oz Weight 155 lb 3.2 oz I&O: 11/17/17 11/18/17 11/19/17 06:59 06:59 06:59 Intake Total 720 240 Balance 720 240 Result Diagrams: 11/18/17 05:30 11/18/17 05:30 Additional Labs: Accuchecks 11/18/17 11/18/17 11/18/17 11:12 05:31 00:04 POC Glucose 175 H 113 H 114 H 11/17/17 17:17 POC Glucose 124 H Phys Exam - Physical Examination Constitutional: NAD HEENT: PERRLA, moist MMs, sclera anicteric Neck: supple, full ROM Respiratory: no wheezing, no rales, no rhonchi, clear to auscultation bilateral Cardiovascular: RRR, no significant murmur, no rub Gastrointestinal: soft, non-tender, no distention, positive bowel sounds Musculoskeletal: no edema Neurological: non-focal, moves all 4 limbs Residual L hemiparesis. Strength 31/2 over 4 left extremities Psychiatric: normal affect, A&O x 3 Skin: no rash Dx/Plan (1) Acute CVA (cerebrovascular accident) Code(s): I63.9 - CEREBRAL INFARCTION, UNSPECIFIED Status: Ruled-out Plan: Initially thought to have a new stroke but ruled out. Comment: Has residual deficits. No new stroke. Continued on home medications. (2) Anxiety and depression Code(s): F41.9 - ANXIETY DISORDER, UNSPECIFIED; F32.9 - MAJOR DEPRESSIVE DISORDER, SINGLE EPISODE, UNSPECIFIED Status: Chronic Plan: Continue KEppra. Comment: Stable. Denies homicidal or suicidal ideations. Commenced on home antidepressants. (3) Seizure Code(s): R56.9 - UNSPECIFIED CONVULSIONS Status: Chronic Comment: Seizure free. on KEPPRA 500 mg BID. has h/o pseudo seizures. (4) Hypokalemia Code(s): E87.6 - HYPOKALEMIA Status: Resolved Comment: Resolved. (5) Diabetes type 2, controlled Code(s): E11.9 - TYPE 2 DIABETES MELLITUS WITHOUT COMPLICATIONS Status: Chronic Qualifiers: Diabetes mellitus complication status: with unspecified complications Diabetes mellitus exterminator helper insulin use: without exterminator helper use Qualified Code( s): E11.8 - Type 2 diabetes mellitus with unspecified complications Plan: Diet controlled. Comment: A1C 6.8, ISS - Plan cont current plan of care, DVT proph w/heparin Scheduled for discharge today. patient able to ambulate well. States her ride will be here around 3 pm. - Discharge Day Minutes spent coordinating discharge of patient: 60
--- NOTE | 2017-11-19 06:01 | DIS ---
DATE OF ADMISSION: 11/14/2017 DATE OF DISCHARGE: 11/18/2017 PRIMARY DIAGNOSES: Seizure, cerebrovascular accident. SECONDARY DIAGNOSES: Type 2 diabetes mellitus, anxiety, and depression, hypokalemia. HISTORY OF PRESENT ILLNESS: A 57-year-old female with a history of grand mal seizures, diabetes, hyp ertension, and prior hemorrhagic CVA with residual left hemiparesis. CVA was diagnosed in May and July of 2017, and the patient presented to the hospital due to suspected new deficits. She was g iven 1 mg of lorazepam at the emergency room and admitted for further workup. HOSPITAL COURSE: The patient remained stable while on admission. There were no further episodes of seizures. There was initial concern for a new motor deficit versus a TIA, complicated by seizures. However, no new deficits were noted and no further seizure activities. She was continued on Keppra. She was also reviewed by Neurology and no new recommendations were made. She was discharged home [facility] and continued on her medications for depression and anxiety. While on admission, she was also seen by [facility]. PHYSICAL EXAMINATION: VITAL SIGNS: Stable. CONSTITUTIONAL: Not in acute distress, lying comfortably in bed. HEENT: Pupils equal, round, and reactive to light. Moist mucous membranes. Anicteric sclerae. NECK: Supple with full range of movement. RESPIRATORY: No wheezing, rales or rhonchi. Clear to auscultation bilaterally. CARDIOVASCULAR: Regular rate and rhythm. No significant murmurs, no rubs. GASTROINTESTINAL: Soft, nontender. Bowel sounds positive. MUSCULOSKELETAL: No edema. NEUROLOGIC: Nonfocal, able to move all 4 limbs. Alert and oriented to time, place and person, has r esidual left hemiparesis and left upper and lower extremities. PSYCHIATRIC: Normal affect. SKIN: No rash. CONSULTATIONS: Neurology. DISCHARGE MEDICATIONS: Aspirin 324 mg p.o. daily, atorvastatin 20 mg p.o. at bedtime, levetiracetam 500 mg p.o. b.i.d., lisinopril/hydrochlorothiazide 1 tablet p.o. daily (20 mg/12.5 mg tablets), metfo rmin 500 mg b.i.d., metoprolol tartrate 25 mg p.o. b.i.d., mirtazapine 15 mg at bedtime, ondansetron 4 mg sublingually q.6h. p.r.n., quetiapine 150 mg p.o. q.p.m., topiramate 25 mg p.o. b.i.d. PROCEDURES: Brain MRI showed minimal mild chronic ischemic white matter changes, otherwise negative. Chest x-ray showed no evidence of cardiopulmonary disease. Brain CT showed no evidence of acute in tracranial abnormality. CT angiography showed no evidence of significant stenoses of the internal ca rotid arteries in the neck with no significant intracranial vascular abnormality. Normal CT perfusio n. EKG showed no acute ischemia. DIET: Heart healthy and diabetic. ACTIVITY: To resume as tolerated. CARE GOALS: To follow up with her primary care physician within 1 week of discharge. CONDITION AT DISCHARGE: Stable. DISPOSITION: Discharged home. Total time of discharge including chart review and documentation 65 minutes.
--- NOTE | 2017-12-04 16:10 | EKG ---
Test Reason : Blood Pressure : / mmHG Vent. Rate : 091 BPM Atrial Rate : 091 BPM P-R Int : 156 ms QRS Dur : 084 ms QT Int : 368 ms P-R-T Axes : 064 086 060 degrees QTc Int : 452 ms Normal sinus rhythm Possible Left atrial enlargement Nonspecific ST abnormality Abnormal ECG Confirmed by DORIS MCKEON M.D. ([id number]), publishing editor EMIR CHRISTENSEN ([id number]) on 12/04/2017 4:09:37 PM Referred By: Confirmed By:DORIS MCKEON M.D.
== END 2017-11-18 15:52 | disposition home or self-care (01) | DRG 101 ==
LOC: ERS 14:06 → 2SE 16:57
PROVIDERS: ADMIT Internal Medicine; ATTEND Internal Medicine
PROC: B030ZZZ Magnetic Resonance Imaging (MRI) of Brain (ICD-10-PCS; principal; 2017-11-15)
DX: G40.409 Other generalized epilepsy and epileptic syndromes, not intractable, without status epilepticus (principal); N17.9 Acute kidney failure, unspecified; E11.65 Type 2 diabetes mellitus with hyperglycemia; I69.354 Hemiplegia and hemiparesis following cerebral infarction affecting left non-dominant side; I10 Essential (primary) hypertension; E87.6 Hypokalemia; F32.9 Major depressive disorder, single episode, unspecified; F41.9 Anxiety disorder, unspecified; Z88.5 Allergy status to narcotic agent; Z88.8 Allergy status to other drugs, medicaments and biological substances; Z91.018 Allergy to other foods; Z82.3 Family history of stroke
CPT/HCPCS: 0042T; 36415; 36416; 51701; 70450; 70496; 70498; 70551; 71045; 80048; 80053; 81003; 81015; 82550; 82553; 83605; 83735; 84484; 85014; 85018; 85025; 85610; 85730; 87804; 93005; 93010; 96365; 96375; A4216; A4353; G8978-GP-CM; G8979-GP-CJ; G8987-GO-CK; G8988-GO-CI; G8996-GN-CH; G8997-GN-CH; J1610; J1644; J1953; J2060; J2405; J2550; Q0162; S0028

== ENCOUNTER 2017-12-01 17:52 | Emergency (ER) | payer OTHER ==
[2017-12-01 18:41] LABS: #Basophils 0.1 thou/uL (0.0-0.2); #Eosinphils 0.4 thou/uL (0.0-0.7); #Lymphocytes 1.7 thou/uL (1.20-3.40); #Monocytes 0.6 thou/uL (0.11-0.59); #Neutrophils 4.5 thou/uL (1.40-6.50); %Basophils 1.3 % (0.0-1.0); %Eosinophils 5.9 % (0.0-10.0); %Lymphocytes 22.8 % (21.0-51.0); %Monocytes 8.6 % (0.0-10.0); %Neutrophils 61.5 % (42.0-75.0); Hemoglobin 14.7 g/dL (12.0-16.0); Mean Corpuscular Hemoglobin 31.5 pg (27.0-31.0); Mean Corpuscular Volume 95.4 fl (81.0-99.0); Platelet Count 199 thou/uL (130-400); RBC Distribution Width 12.7 % (11.5-14.5); Red Blood Cell (RBC) Count 4.68 mill/uL (4.20-5.40); White Blood Cell (WBC) Count 7.3 thou/uL (4.8-10.8)
[2017-12-01 19:05] LABS: ALT (SGPT) 10 U/L (8-55); AST (SGOT) 12 U/L (5-34); Albumin 4.1 g/dL (3.5-5.0); Alkaline Phosphatase 109 U/L (40-150); Anion Gap 13 mmol/L (10-20); BUN (Urea Nitrogen) 16 mg/dL (9.8-20.1); Bilirubin, Total 0.5 mg/dL (0.2-1.2); Calc. Creatinine Clearance 0 mL/min (70-130); Carbon Dioxide 23 mmol/L (22-29); Chloride 107 mmol/L (98-107); Estimated GFR-MDRD 42; Globulin 3.5 g/dL (2.4-3.5); Glucose 147 mg/dL (70-105); Potassium 3.7 mmol/L (3.5-5.1); Protein, Total 7.6 g/dL (6.0-8.3); Sodium 139 mmol/L (136-145)
[2017-12-01] MEDS ORDERED: Acetaminophen 325 MG TAB ONE (19:47)
[2017-12-01] MEDS ORDERED: Ondansetron HCl/PF 4 MG/2 ML Vial ONE (20:10)
[2017-12-01] MEDS ORDERED: levETIRAcetam In NaCl (Iso-Os) 1,500 MG in Premix Bag 1 BAG IVPB SCH ×2 (20:15)
[2017-12-01] MEDS ORDERED: Metoclopramide HCl 10 MG/2 ML VIAL ONE (22:08)
[2017-12-01] MEDS ORDERED: diphenhydrAMINE 50 MG/ML VIAL ONE (22:08)
== END 2017-12-01 23:55 | disposition home or self-care (01) ==
LOC: ERS 17:52
DX: G40.909 Epilepsy, unspecified, not intractable, without status epilepticus (principal); R51 Headache; R11.0 Nausea; E11.9 Type 2 diabetes mellitus without complications; I10 Essential (primary) hypertension; K21.9 Gastro-esophageal reflux disease without esophagitis; Z86.73 Personal history of transient ischemic attack (TIA), and cerebral infarction without residual deficits; Z87.891 Personal history of nicotine dependence
CPT/HCPCS: 80053; 80177; 83735; 85025; 93005; 94760; 96365; 96367; 96375; J1200; J1953; J2405; J2765

== ENCOUNTER 2018-04-24 12:58 | Emergency (ER) | payer OTHER ==
[2018-04-24] MEDS ORDERED: levETIRAcetam 500 mg/5 ml Oral Solution PO SCH (13:30)
[2018-04-24 14:09] LABS: #Basophils 0.1 thou/uL (0.0-0.2); #Eosinphils 0.2 thou/uL (0.0-0.7); #Lymphocytes 2.3 thou/uL (1.20-3.40); #Monocytes 0.8 thou/uL (0.11-0.59); #Neutrophils 6.3 thou/uL (1.40-6.50); %Basophils 0.7 % (0.0-1.0); %Eosinophils 2.3 % (0.0-10.0); %Lymphocytes 23.4 % (21.0-51.0); %Monocytes 8.3 % (0.0-10.0); %Neutrophils 65.2 % (42.0-75.0); Hemoglobin 14.2 g/dL (12.0-16.0); Mean Corpuscular HGB CONC 32.7 g/dL (32.0-36.0); Mean Corpuscular Hemoglobin 31.6 pg (27.0-31.0); Mean Corpuscular Volume 96.5 fL (78.0-98.0); Mean Platelet Volume 10.7 fL (7.4-10.4); Platelet Count 145 thou/uL (130-400); RBC Distribution Width 12.9 % (11.5-14.5); Red Blood Cell (RBC) Count 4.49 mill/uL (4.20-5.40); White Blood Cell (WBC) Count 9.7 thou/uL (4.8-10.8)
--- NOTE | 2018-04-24 14:27 | CT ---
CT HEAD WITHOUT CONTRAST: Date: 04/24/18 Multiple axial tomograms obtained through the head without IV enhancement. INDICATION: Right side headache. Post seizure. Injury. FINDINGS: Ventricles have normal size and position. No evidence of intracranial hemorrhage. No evidence of mass or edema. Sinuses and mastoids are well aerated. IMPRESSION: No acute process identified. POS: [facility]
[2018-04-24 14:28] LABS: ALT (SGPT) 19 U/L (8-55); AST (SGOT) 18 U/L (5-34); Albumin 3.9 g/dL (3.5-5.0); Alkaline Phosphatase 106 U/L (40-150); Anion Gap 15 mmol/L (10-20); BUN (Urea Nitrogen) 33 mg/dL (9.8-20.1); Bilirubin, Total 0.5 mg/dL (0.2-1.2); Calc. Creatinine Clearance 0 mL/min (70-130); Calcium 9.3 mg/dL (7.8-10.44); Carbon Dioxide 20 mmol/L (22-29); Chloride 110 mmol/L (98-107); Estimated GFR-MDRD 33; Globulin 2.7 g/dL (2.4-3.5); Glucose 165 mg/dL (70-105); Potassium 4.1 mmol/L (3.5-5.1); Protein, Total 6.6 g/dL (6.0-8.3); Sodium 141 mmol/L (136-145)
[2018-04-24] MEDS ORDERED: Ketorolac Tromethamine 30 MG/ML VIAL ONE (14:29)
--- NOTE | 2018-04-24 14:29 | CT ---
CT CERVICAL SPINE: Date: 04/24/18 Multiple axial tomograms obtained through cervical spine without contrast. INDICATION: Injury from post seizure. Neck pain. FINDINGS: Cervical vertebra maintain normal height and alignment. There are mild degenerative changes noted wit h loss of disc space and posterior spondylitic changes at C4-5, C5-6, and C6-7 levels. These changes appear to impinge on the cord at C4-5 and C6-7. No evidence of fracature identified. IMPRESSION: Degenerative changes with spondylitic changes encroaching into the spinal canal as described. No evid ence of acute fracture. POS: [facility]
== END 2018-04-24 17:22 | disposition home or self-care (01) ==
LOC: ERS 12:58
DX: G40.909 Epilepsy, unspecified, not intractable, without status epilepticus (principal); Z86.73 Personal history of transient ischemic attack (TIA), and cerebral infarction without residual deficits; K21.9 Gastro-esophageal reflux disease without esophagitis; E78.00 Pure hypercholesterolemia, unspecified; I12.9 Hypertensive chronic kidney disease with stage 1 through stage 4 chronic kidney disease, or unspecified chronic kidney disease; N18.9 Chronic kidney disease, unspecified; E11.22 Type 2 diabetes mellitus with diabetic chronic kidney disease; Z79.84 Long term (current) use of oral hypoglycemic drugs; F41.9 Anxiety disorder, unspecified; F20.9 Schizophrenia, unspecified; Z87.891 Personal history of nicotine dependence; Z79.82 Long term (current) use of aspirin; Z79.899 Other long term (current) drug therapy
CPT/HCPCS: 36415; 70450; 72125; 80053; 84146; 85025; 93005; 96361; 96374; J1885

== ENCOUNTER 2022-04-22 17:51 | Inpatient (IN) | payer OTHER ==
[2022-04-22 18:31] LABS: #Eosinphils 0.2 thou/uL (0.0-0.7); #Lymphocytes 1.8 thou/uL (1.20-3.40); #Monocytes 0.7 thou/uL (0.11-0.59); #Neutrophils 3.1 thou/uL (1.40-6.50); %Basophils 0.7 % (0.0-1.0); %Eosinophils 3.7 % (0.0-10.0); %Lymphocytes 30.3 % (21.0-51.0); %Monocytes 12.1 % (0.0-10.0); %Neutrophils 53.2 % (42.0-75.0); Hemoglobin 14.7 g/dL (12.0-16.0); Mean Corpuscular HGB CONC 32.4 g/dL (32.0-36.0); Mean Corpuscular Volume 98.8 fL (78.0-98.0); Mean Platelet Volume 10.9 fL (7.4-10.4); Platelet Count 164 thou/uL (130-400); RBC Distribution Width 11.9 % (11.5-14.5); Red Blood Cell (RBC) Count 4.59 mill/uL (4.20-5.40); White Blood Cell (WBC) Count 5.8 thou/uL (4.8-10.8)
[2022-04-22 18:39] LABS: PTT 38.7 sec (22.9-36.1); Prothrombin Time 11.8 sec (12.0-14.7)
[2022-04-22 18:41] LABS: INR-International Normal Ratio 0.9
[2022-04-22] MEDS ORDERED: Aspirin Chewable 81 MG TAB ONE (18:42)
[2022-04-22 18:51] LABS: ALT (SGPT) 11 U/L (8-55); AST (SGOT) 13 U/L (5-34); Albumin 3.5 g/dL (3.4-4.8); Alkaline Phosphatase 94 U/L (40-110); Anion Gap 15 mmol/L (10-20); BUN (Urea Nitrogen) 39 mg/dL (9.8-20.1); Bilirubin, Total 0.3 mg/dL (0.2-1.2); CK (CPK) 56 U/L (29-168); Calc. Creatinine Clearance 0 mL/min (70-130); Calcium 9.1 mg/dL (7.8-10.44); Carbon Dioxide 18 mmol/L (23-31); Chloride 108 mmol/L (98-107); Estimated GFR 36; Globulin 2.8 g/dL (2.4-3.5); Glucose 229 mg/dL (80-115); Potassium 4.1 mmol/L (3.5-5.1); Protein, Total 6.3 g/dL (5.8-8.1); Sodium 137 mmol/L (136-145)
[2022-04-22 19:02] LABS: Bacteria/HPF 2+ HPF (None Seen); Bilirubin Negative (Negative); Blood, Urine Negative (Negative); Clarity Clear (Clear); Glucose, Urine (Dipstick) >=1000 mg/dL (Negative); Ketone, Urine Negative (Negative); Leukocyte 25 Leu/uL (Negative); Nitrite Negative (Negative); Protein, Urine (Dipstick) Negative (Neg-Trace); RBC/HPF 0-3 HPF (0-3); Specific Gravity, Urine 1.018 (1.002-1.036); Squamous Epithelial 0-3 HPF (0-3); Urobilinogen Normal mg/dL (Less than 2)
[2022-04-22] MEDS ORDERED: Dextrose 50% Abboject 50 ML SYRINGE SLOW IVP PRN (21:27)
[2022-04-22] MEDS ORDERED: HumaLOG 300 UNITS/3 ML VIAL SC PRN (21:27)
[2022-04-22] MEDS ORDERED: Dextrose 5% in Water 1,000 ML IV PRN (21:27)
[2022-04-22] MEDS ORDERED: Acetaminophen 325 MG TAB PO PRN (21:28)
[2022-04-22] MEDS ORDERED: Ondansetron PF 4 MG/2 ML Vial IVP PRN (21:28)
[2022-04-22] MEDS ORDERED: Ondansetron ODT 4 MG TAB PO PRN (21:28)
[2022-04-22] MEDS ORDERED: hydrALAZINE 20 MG/ML VIAL SLOW IVP PRN (21:31)
[2022-04-22 23:42] LABS: SARS-CoV-2 NAA Rapid Test DETECTED (NotDetected)
[2022-04-23 00:18] VITALS: BMI 24.7
[2022-04-23 01:52] LABS: Amphetamine Detected (NotDetected); Barbiturates Screen Not Detected (NotDetected); Benzodiazepine Screen Not Detected (NotDetected); Cocaine Metabolite Screen Not Detected (NotDetected); Methadone Not Detected (NotDetected); Methamphetamine Detected (NotDetected); Opiate Screen Not Detected (NotDetected); Oxycodone Screen Not Detected (NotDetected); Phencyclidine (PCP) Not Detected (NotDetected); THC/Cannabinoid Screen Detected (NotDetected); Tricyclic Screen Not Detected (NotDetected)
[2022-04-23 05:28] LABS: #Eosinphils 0.4 thou/uL (0.0-0.7); #Monocytes 0.6 thou/uL (0.11-0.59); #Neutrophils 2.9 thou/uL (1.40-6.50); %Basophils 0.3 % (0.0-1.0); %Eosinophils 6.3 % (0.0-10.0); %Lymphocytes 34.2 % (21.0-51.0); %Monocytes 10.4 % (0.0-10.0); %Neutrophils 48.8 % (42.0-75.0); Hemoglobin 14.4 g/dL (12.0-16.0); Mean Corpuscular HGB CONC 31.5 g/dL (32.0-36.0); Mean Corpuscular Hemoglobin 31.2 pg (27.0-31.0); Mean Corpuscular Volume 99.1 fL (78.0-98.0); Mean Platelet Volume 10.7 fL (7.4-10.4); Platelet Count 180 thou/uL (130-400); RBC Distribution Width 11.9 % (11.5-14.5)
[2022-04-23 05:37] LABS: Hemoglobin A1c 9.7 % (4.0-6.0)
[2022-04-23 05:49] LABS: Anion Gap 16 mmol/L (10-20); BUN (Urea Nitrogen) 31 mg/dL (9.8-20.1); Calc. Creatinine Clearance 54 mL/min (70-130); Calcium 8.9 mg/dL (7.8-10.44); Carbon Dioxide 15 mmol/L (23-31); Cardiac Risk 3.7 (Less than 4.5); Chloride 110 mmol/L (98-107); Cholesterol 164 mg/dl (< 200 Desired); Estimated GFR 56; Glucose 148 mg/dL (80-115); HDL Cholesterol 44 mg/dL (>60 Neg Risk); LDL Cholesterol, Calculated 100 mg/dL; Magnesium 1.7 mg/dL (1.6-2.6); Sodium 137 mmol/L (136-145); Triglycerides 101 mg/dL (Less than 150)
[2022-04-23] MEDS ORDERED: levETIRAcetam 500 MG TAB PO SCH (09:00)
[2022-04-23] MEDS: Aspirin 81 mg Enteric Coated Tablet PO SCH (09:05)
[2022-04-23] MEDS: metFORMIN 500 MG TAB PO SCH ×2 (09:05→17:24)
[2022-04-23] MEDS: Topiramate 25 MG TAB PO SCH ×2 (09:06→20:53)
[2022-04-23] MEDS ORDERED: Dextrose 50% Abboject 50 ML SYRINGE FS PRN (12:51)
[2022-04-23] MEDS ORDERED: Dextrose 5% in Water 1,000 ML IV PRN (12:51)
[2022-04-23] MEDS ORDERED: Insulin Regular 300 UNITS/3 ML VIAL SC PRN (12:51)
[2022-04-23] MEDS ORDERED: Lorazepam 1 MG TAB PO PRN (12:53)
[2022-04-23] MEDS: HumaLOG 300 UNITS/3 ML VIAL SC PRN (13:16)
[2022-04-23] MEDS: levETIRAcetam 500 MG TAB PO SCH (20:49)
[2022-04-23] MEDS ORDERED: Atorvastatin Calcium 20 MG TAB PO SCH (21:00)
[2022-04-23] MEDS ORDERED: Atorvastatin Calcium 40 MG TAB PO SCH (21:00)
[2022-04-24 06:02] LABS: Anion Gap 15 mmol/L (10-20); BUN (Urea Nitrogen) 30 mg/dL (9.8-20.1); Calc. Creatinine Clearance 51 mL/min (70-130); Calcium 9.2 mg/dL (7.8-10.44); Carbon Dioxide 16 mmol/L (23-31); Chloride 108 mmol/L (98-107); Estimated GFR 53; Glucose 211 mg/dL (80-115); Potassium 4.1 mmol/L (3.5-5.1); Sodium 135 mmol/L (136-145)
[2022-04-24] MEDS: HumaLOG 300 UNITS/3 ML VIAL SC PRN ×2 (06:10→11:39)
[2022-04-24 06:18] LABS: Band 2 % (5-11); Eosinophils 3 % (0-10); Lymphocytes 46 % (21-51); MDiff Complete? YES; Mean Corpuscular HGB CONC 32.7 g/dL (32.0-36.0); Mean Corpuscular Hemoglobin 32.1 pg (27.0-31.0); Mean Corpuscular Volume 98.1 fL (78.0-98.0); Mean Platelet Volume 11.6 fL (7.4-10.4); Monocytes 6 % (0-10); Neutrophil 42 % (42-75); Platelet Count 121 thou/uL (130-400); Platelet Morphology Comment Appears Adequate; Red Blood Cell (RBC) Count 4.68 mill/uL (4.20-5.40); White Blood Cell (WBC) Count 5.4 thou/uL (4.8-10.8)
[2022-04-24] MEDS: metFORMIN 500 MG TAB PO SCH ×2 (09:11→18:20)
[2022-04-24] MEDS: Aspirin 81 mg Enteric Coated Tablet PO SCH (09:12)
[2022-04-24] MEDS: levETIRAcetam 500 MG TAB PO SCH (09:12)
[2022-04-24] MEDS: Topiramate 25 MG TAB PO SCH (09:19)
[2022-04-24 16:01] VITALS: BP 90/57; TEMP 97.3
== END 2022-04-24 17:35 | disposition home or self-care (01) | DRG 100 ==
LOC: ERS 17:51 → INTOOBSV 20:42 → NEURO 20:42 → OBSVTOIN 04-24 16:47
PROVIDERS: ADMIT Internal Medicine; ATTEND Internal Medicine
PROC: 8E0ZXY6 Isolation (ICD-10-PCS; principal; 2022-04-24)
DX: G40.909 Epilepsy, unspecified, not intractable, without status epilepticus (principal); U07.1 COVID-19; G45.9 Transient cerebral ischemic attack, unspecified; I69.954 Hemiplegia and hemiparesis following unspecified cerebrovascular disease affecting left non-dominant side; F19.20 Other psychoactive substance dependence, uncomplicated; E11.22 Type 2 diabetes mellitus with diabetic chronic kidney disease; E78.00 Pure hypercholesterolemia, unspecified; F31.9 Bipolar disorder, unspecified; N18.9 Chronic kidney disease, unspecified; G83.84 Todd's paralysis (postepileptic); E86.0 Dehydration; I10 Essential (primary) hypertension; F43.10 Post-traumatic stress disorder, unspecified; K21.9 Gastro-esophageal reflux disease without esophagitis; Z79.899 Other long term (current) drug therapy; Z79.82 Long term (current) use of aspirin; Z79.84 Long term (current) use of oral hypoglycemic drugs; Z90.710 Acquired absence of both cervix and uterus
CPT/HCPCS: 0439T; 36415; 36416; 70450; 70551; 71045; 80048; 80053; 80061; 80177; 80306; 81003; 81015; 82550; 83036; 83735; 84443; 84484; 85025; 85610; 85730; 93005; 93306; 94760; G0378; J1815; U0002

== ENCOUNTER 2025-05-23 23:24 | Observation (INO) | payer MEDICARE, OTHER, SELFPAY ==
[2025-05-23 23:49] LABS: #Basophils 0.10 10x3/uL (0.0-0.2); #Eosinophils 0.28 10x3/uL (0.0-0.7); #Monocytes 0.74 10x3/uL (0.11-0.59); #Neutrophils 4.36 10x3/uL (1.40-6.50); %Basophils 1.3 % (0.0-1.0); %Eosinophils 3.5 % (0.0-10.0); %Lymphocytes 31.0 % (21.0-51.0); %Monocytes 9.3 % (0.0-10.0); %Neutrophils 54.5 % (42.0-75.0); Hematocrit 38.4 % (36.0-47.0); Hemoglobin 13.4 g/dL (12.0-16.0); Mean Corpuscular Hemoglobin 31.1 pg (27.0-31.0); Mean Corpuscular Volume 89.1 fL (78.0-98.0); Platelet Count 202 10x3/uL (130-400); Red Blood Cell (RBC) Count 4.31 mill/uL (4.20-5.40); White Blood Cell (WBC) Count 7.99 10x3/uL (4.8-10.8)
[2025-05-24 00:09] LABS: Troponin I 0.010 ng/mL (< 0.028)
[2025-05-24 00:17] LABS: ALT (SGPT) 10 U/L (Less than 34); AST (SGOT) 17 U/L (11-34); Albumin 3.1 g/dL (3.1-4.5); Alkaline Phosphatase 120 U/L (40-110); Anion Gap 16 mmol/L (10-20); BUN (Urea Nitrogen) 25 mg/dL (9.8-20.1); Bilirubin, Total 0.3 mg/dL (0.3-1.2); Calc. Creatinine Clearance 0 mL/min (70-130); Calcium 8.8 mg/dL (7.8-10.44); Carbon Dioxide 19 mmol/L (23-31); Chloride 102 mmol/L (98-107); Globulin 3.0 g/dL (2.4-3.5); Glucose 441 mg/dL (80-115); Potassium 4.0 mmol/L (3.5-5.1); Sodium 133 mmol/L (136-145)
[2025-05-24 00:19] LABS: Actual Bicarbonate (HCO3v) 21.0 mEq/L (22-28); Base Excess -3.5 mEq/L (-2.0 to +3.0); Calcium, Ionized (venous) 1.14 mmol/L (1.16-1.32); Chloride (VBG) 100 mmol/L (98-106); Hematocrit-VBG 44 % (36.0-47.0); Hemoglobin (Hb) 15.1 g/dL (11.7-16.1); Potassium (VBG) 4.04 mmol/L (3.70-5.30); Sodium 134 mmol/L (133-146)
[2025-05-24 01:05] LABS: Bacteria/HPF 4+ HPF (None Seen); CAUTI Indications for Culture Alt mental st,lethar; Glucose, Urine (Dipstick) Greater than 1000 mg/dL (Negative); Leukocyte 500 Leu/uL (Negative); Protein, Urine (Dipstick) Negative (Neg-Trace); Specific Gravity, Urine 1.033 (1.002-1.036); WBC/HPF Greater than 50 HPF (0-3)
[2025-05-24 01:07] LABS: Urine Culture Reflex Yes Yes
[2025-05-24] MEDS ORDERED: cefTRIAXone (ROCEPHIN) 1 GM VIAL ONE (01:42)
[2025-05-24 01:51] LABS: Troponin I 0.015 ng/mL (< 0.028)
[2025-05-24] MEDS ORDERED: Acetaminophen 325 MG TAB PO PRN (02:49)
[2025-05-24] MEDS ORDERED: Dextrose 50% Abboject 50 ML SYRINGE SLOW IVP PRN (03:14)
[2025-05-24] MEDS ORDERED: Glucagon 1 MG/ML KIT IM PRN (03:14)
[2025-05-24 04:09] LABS: #Basophils 0.09 10x3/uL (0.0-0.2); #Eosinophils 0.40 10x3/uL (0.0-0.7); #Monocytes 0.87 10x3/uL (0.11-0.59); #Neutrophils 3.98 10x3/uL (1.40-6.50); %Basophils 1.0 % (0.0-1.0); %Eosinophils 4.5 % (0.0-10.0); %Lymphocytes 39.6 % (21.0-51.0); %Monocytes 9.8 % (0.0-10.0); %Neutrophils 44.9 % (42.0-75.0); Hematocrit 38.2 % (36.0-47.0); Hemoglobin 13.0 g/dL (12.0-16.0); Mean Corpuscular Hemoglobin 31.2 pg (27.0-31.0); Mean Corpuscular Volume 91.6 fL (78.0-98.0); Platelet Count 195 10x3/uL (130-400); Red Blood Cell (RBC) Count 4.17 mill/uL (4.20-5.40); White Blood Cell (WBC) Count 8.88 10x3/uL (4.8-10.8)
[2025-05-24 04:40] LABS: Anion Gap 13 mmol/L (10-20); BUN (Urea Nitrogen) 23 mg/dL (9.8-20.1); Calc. Creatinine Clearance 0 mL/min (70-130); Calcium 8.4 mg/dL (7.8-10.44); Carbon Dioxide 21 mmol/L (23-31); Cardiac Risk 3.4 (Less than 4.5); Chloride 105 mmol/L (98-107); Cholesterol 165 mg/dl (< 200 Desired); Glucose 123 mg/dL (80-115); HDL Cholesterol 49 mg/dL (>60 Neg Risk); LDL Cholesterol, Calculated 83 mg/dL; Potassium 3.3 mmol/L (3.5-5.1); Sodium 136 mmol/L (136-145); Triglycerides 167 mg/dL (Less than 150)
[2025-05-24 04:45] LABS: Troponin I Less than 0.010 ng/mL (< 0.028)
[2025-05-24 05:02] VITALS: BMI 20.5
[2025-05-24 05:33] LABS: Cocaine Metabolite Screen Negative (Negative); THC/Cannabinoid Screen PRELIM POSITIVE (Negative); Tricyclic Screen Negative (Negative)
[2025-05-24 07:10] LABS: Troponin I 0.016 ng/mL (< 0.028)
[2025-05-24] MEDS: Aspirin 81 mg Enteric Coated Tablet PO SCH (08:57)
[2025-05-24] MEDS: Enoxaparin 40 MG (0.4 mL) SYRINGE SC SCH (08:57)
[2025-05-24] MEDS: Ondansetron PF 4 MG/2 ML Vial IVP PRN (08:57)
[2025-05-24] MEDS ORDERED: Insulin Glargine 30 UNITS/0.3 ML VIAL SC SCH (09:00)
[2025-05-24] MEDS: Insulin Glargine 30 UNITS/0.3 ML VIAL SC SCH (14:52)
[2025-05-24] MEDS ORDERED: HYDROcodone/Acetaminophen 5/325 mg Tablet PO PRN (17:05)
[2025-05-24] MEDS ORDERED: HYDROmorphone 0.5 MG/0.5 ML SYRINGE SLOW IVP PRN (17:05)
[2025-05-24] MEDS: Pantoprazole 40 MG VIAL IVP SCH (17:14)
[2025-05-24] MEDS: HYDROmorphone 0.5 MG/0.5 ML SYRINGE SLOW IVP SCH (17:14)
[2025-05-25] MEDS: cefTRIAXone\\ROCEPHIN 1 GM in Sodium Chloride 0.9% 100 ML IVPB SCH (00:58)
[2025-05-25 05:15] LABS: #Basophils 0.07 10x3/uL (0.0-0.2); #Eosinophils 0.33 10x3/uL (0.0-0.7); #Monocytes 0.87 10x3/uL (0.11-0.59); #Neutrophils 3.46 10x3/uL (1.40-6.50); %Basophils 0.9 % (0.0-1.0); %Eosinophils 4.4 % (0.0-10.0); %Lymphocytes 36.4 % (21.0-51.0); %Monocytes 11.7 % (0.0-10.0); %Neutrophils 46.5 % (42.0-75.0); Hematocrit 46.1 % (36.0-47.0); Hemoglobin 15.7 g/dL (12.0-16.0); Mean Corpuscular Hemoglobin 30.8 pg (27.0-31.0); Mean Corpuscular Volume 90.4 fL (78.0-98.0); Platelet Count 195 10x3/uL (130-400); Red Blood Cell (RBC) Count 5.10 mill/uL (4.20-5.40); White Blood Cell (WBC) Count 7.45 10x3/uL (4.8-10.8)
[2025-05-25 05:40] LABS: Anion Gap 14 mmol/L (10-20); BUN (Urea Nitrogen) 13 mg/dL (9.8-20.1); Calc. Creatinine Clearance 51 mL/min (70-130); Calcium 9.2 mg/dL (7.8-10.44); Carbon Dioxide 23 mmol/L (23-31); Chloride 102 mmol/L (98-107); Glucose 130 mg/dL (80-115); Magnesium 1.5 mg/dL (1.6-2.6); Potassium 4.1 mmol/L (3.5-5.1); Sodium 135 mmol/L (136-145)
[2025-05-25] MEDS: Magnesium 2 GM/50 ML(in water) 2 GM in Premix 1 BAG IVPB SCH (09:52)
[2025-05-25] MEDS: Pantoprazole 40 MG VIAL IVP SCH (09:54)
[2025-05-25] MEDS: Insulin Glargine 30 UNITS/0.3 ML VIAL SC SCH (09:54)
[2025-05-25 15:53] VITALS: BP 148/87; TEMP 97.9
== END 2025-05-25 16:13 | disposition home or self-care (01) ==
LOC: ERS 23:24 → OBS 05-24 02:43
PROVIDERS: ADMIT Internal Medicine; ATTEND Internal Medicine
DX: R07.89 Other chest pain (principal); I10 Essential (primary) hypertension; E11.9 Type 2 diabetes mellitus without complications; E78.5 Hyperlipidemia, unspecified; E87.6 Hypokalemia; N39.0 Urinary tract infection, site not specified; F17.200 Nicotine dependence, unspecified, uncomplicated; Z86.73 Personal history of transient ischemic attack (TIA), and cerebral infarction without residual deficits; Z90.710 Acquired absence of both cervix and uterus; Z98.890 Other specified postprocedural states; Z88.5 Allergy status to narcotic agent; Z88.8 Allergy status to other drugs, medicaments and biological substances; Z91.018 Allergy to other foods; Z79.84 Long term (current) use of oral hypoglycemic drugs; Z79.82 Long term (current) use of aspirin
CPT/HCPCS: 71045; 80048 ×2; 80053; 80061; 80306; 81001; 82010; 82805; 82962 ×2; 83036; 83690; 83735; 84145; 84484 ×3; 85025 ×3; 87077; 87086; 87428; 93005; 96361; 96365; 99285; J0696 ×2; J1171; J1650 ×2; J1815; J2405; J2470 ×2; J3475; J7120 ×2; 36415; 36416; 87186; 96367; 96372; 96375; 96376; G0378